=== PATIENT | female | born 1935 | race Hispanic/Latino ===

== ENCOUNTER 2021-06-10 13:40 | Emergency (ER) | payer MEDICARE ==
[~2021-06-10] VITALS: Ht 157.5 cm; Wt 65.8 kg
[2021-06-10 13:42] VITALS: BP 164/76
[2021-06-10] MEDS ORDERED: MORPHINE 2 MG SYG IVP ONE (14:30)
[2021-06-10] MEDS ORDERED: ONDANSETRON 4MG INJ IVP ONE (14:30)
[2021-06-10 14:57] LABS: BASOPHILS % (AUTO) 0.4 % (0.0-5.0); EOSINOPHILS % (AUTO) 1.6 % (0.0-8.0); HEMATOCRIT 38.4 % (36-48); LYMPHOCYTES % (AUTO) 27.9 % (21.0-51.0); MEAN CORPUSCULAR HEMOGLOBIN 30.8 pg (27.0-33.0); MEAN CORPUSCULAR HGB CONC 33.3 g/dL (32.0-36.0); MEAN CORPUSCULAR VOLUME 92.3 fL (79-99); MONOCYTES % (AUTO) 6.5 % (3.0-13.0); NEUTROPHILS % (AUTO) 63.3 % (40.0-77.0); PLATELET COUNT (AUTO) 154 K/uL (130-400); RED BLOOD CELL COUNT(AUTO) 4.16 MIL/uL (4.00-5.50); RED CELL DISTRIBUTION WIDTH 13.8 % (11.0-15.5); WHITE BLOOD COUNT (AUTO) 6.8 K/uL (4.8-10.8)
[2021-06-10 15:08] LABS: CREATININE 0.8 mg/dL (0.5-1.5); POTASSIUM 4.9 mmol/L (3.5-5.1)
[2021-06-10 15:30] LABS: ALBUMIN 3.9 g/dL (3.5-5.0); BILIRUBIN,TOTAL 0.9 mg/dL (0.2-1.0); TOTAL PROTEIN, SERUM 7.9 g/dL (6.0-8.3)
[2021-06-10] MEDS ORDERED: IBUP-2091 PO (16:22)
== END 2021-06-10 16:33 | disposition home or self-care (01) ==
LOC: EDH 13:40
DX: S22.42XA Multiple fractures of ribs, left side, initial encounter for closed fracture (principal); R06.00 Dyspnea, unspecified; I10 Essential (primary) hypertension; E78.00 Pure hypercholesterolemia, unspecified; E11.9 Type 2 diabetes mellitus without complications; Z79.899 Other long term (current) drug therapy; W18.39XA Other fall on same level, initial encounter; Y93.89 Activity, other specified; Y92.89 Other specified places as the place of occurrence of the external cause; Y99.8 Other external cause status
CPT/HCPCS: 36415; 71045; 71100; 80053; 85025; 96374; 96375; 99284; J2405

== ENCOUNTER 2022-11-06 11:30 | Observation (INO) | payer MEDICARE ==
[~2022-11-06] VITALS: Ht 157.5 cm; Wt 63.3 kg
[~2022-11-06 11:30] MED LIST: IBUP-2091 PO
[2022-11-06] MEDS ORDERED: LABETALOL 20MG VIAL IV ONE (12:00)
[2022-11-06] MEDS ORDERED: ASPIRIN 81MG CHEW TAB PO ONE (12:00)
[2022-11-06 12:20] LABS: BASOPHILS % (AUTO) 0.2 % (0.0-5.0); EOSINOPHILS % (AUTO) 0.3 % (0.0-8.0); HEMATOCRIT 36.2 % (36-48); LYMPHOCYTES % (AUTO) 10.4 % (21.0-51.0); MEAN CORPUSCULAR HEMOGLOBIN 29.9 pg (27.0-33.0); MEAN CORPUSCULAR HGB CONC 33.1 g/dL (32.0-36.0); MONOCYTES % (AUTO) 3.9 % (3.0-13.0); NEUTROPHILS % (AUTO) 84.7 % (40.0-77.0); PLATELET COUNT (AUTO) 236 K/uL (130-400); RED BLOOD CELL COUNT(AUTO) 4.02 MIL/uL (4.00-5.50); RED CELL DISTRIBUTION WIDTH 13.4 % (11.0-15.5); WHITE BLOOD COUNT (AUTO) 9.7 K/uL (4.8-10.8)
[2022-11-06 12:30] LABS: CREATININE 0.7 mg/dL (0.5-1.5); INR 0.98 (0.85-1.15); POTASSIUM 4.1 mmol/L (3.5-5.1); PROTHROMBIN TIME 10.7 SEC (9.6-11.6)
[2022-11-06 12:32] LABS: PARTIAL THROMBOPLASTIN TIME 28.8 SEC (26.3-35.5)
[2022-11-06 12:34] LABS: ALBUMIN 3.6 g/dL (3.5-5.0); TOTAL PROTEIN, SERUM 7.2 g/dL (6.0-8.3)
[2022-11-06 12:43] LABS: MAGNESIUM 2.1 mg/dL (1.80-2.40)
[2022-11-06 13:54] LABS: APPEARANCE,URINE CLOUDY (CLEAR); BILIRUBIN,URINE NEGATIVE (NEGATIVE); COLOR,URINE YELLOW (YELLOW); GLUCOSE, URINE (UA) >=1000 mg/dL (NEGATIVE); KETONES,URINE NEGATIVE (NEGATIVE); LEUKOCYTE ESTERASE ,URINE SMALL Leu/uL (NEGATIVE); NITRATE,URINE NEGATIVE (NEGATIVE); OCCULT BLOOD,URINE TRACE-INTACT (NEGATIVE); PROTEIN,URINE NEGATIVE (NEGATIVE); UROBILINOGEN,URINE 0.2 mg/dL (0.2-1.0)
[2022-11-06 13:59] LABS: HEMOGLOBIN A1C 7.1 % (4.0-6.0)
[2022-11-06] MEDS ORDERED: LACTULOSE 20 GM/30 ML UDCUP PO PRN (14:00)
[2022-11-06] MEDS ORDERED: ONDANSETRON 4MG INJ IV PRN (14:00)
[2022-11-06] MEDS ORDERED: ACETAMINOPHEN 325 MG TAB PO PRN ×2 (14:00)
[2022-11-06 14:09] LABS: BACTERIA,URINE Many /HPF (None Seen); RBC,URINE 0-1 /HPF (0-1); SQUAMOUS EPITHELIAL CELL,UR Rare /HPF (0-2)
[2022-11-06] MEDS: 0.9%NACL 1000ML 1,000 ML IV SCH ×2 (14:19→20:23)
[2022-11-06] MEDS ORDERED: GLUCAGON 1MG KIT 1 MG ML IM PRN (14:30)
[2022-11-06] MEDS ORDERED: DEXTROSE 50%-WATER 50 ML DISP.SYRIN IV PRN (14:30)
[2022-11-06] MEDS: HYDRALAZINE 20MG/ML VIAL IV PRN (16:29)
[2022-11-06] MEDS: INSULIN HUMULIN R 100 UNIT/ML 3ML SQ SCH ×2 (16:30→21:00)
[2022-11-06 17:40] VITALS: BP 168/83
[2022-11-06 20:00] VITALS: BP 142/72
[2022-11-06] MEDS: FAMOTIDINE 20MG TAB PO SCH (20:22)
[2022-11-07] VITALS (10 sets, daily range): BP systolic 110–181; BP diastolic 66–86
[2022-11-07] MEDS: HYDRALAZINE 20MG/ML VIAL IV PRN (04:18)
[2022-11-07 04:59] LABS: BASOPHILS % (AUTO) 0.6 % (0.0-5.0); EOSINOPHILS % (AUTO) 2.8 % (0.0-8.0); HEMATOCRIT 35.7 % (36-48); LYMPHOCYTES % (AUTO) 35.5 % (21.0-51.0); MEAN CORPUSCULAR HEMOGLOBIN 29.6 pg (27.0-33.0); MEAN CORPUSCULAR HGB CONC 33.1 g/dL (32.0-36.0); MEAN CORPUSCULAR VOLUME 89.5 fL (79-99); MONOCYTES % (AUTO) 7.8 % (3.0-13.0); NEUTROPHILS % (AUTO) 53.1 % (40.0-77.0); PLATELET COUNT (AUTO) 233 K/uL (130-400); RED BLOOD CELL COUNT(AUTO) 3.99 MIL/uL (4.00-5.50); RED CELL DISTRIBUTION WIDTH 13.5 % (11.0-15.5); WHITE BLOOD COUNT (AUTO) 5.4 K/uL (4.8-10.8)
[2022-11-07 05:26] LABS: ALBUMIN 3.3 g/dL (3.5-5.0); CREATININE 0.7 mg/dL (0.5-1.5); POTASSIUM 3.5 mmol/L (3.5-5.1); TOTAL PROTEIN, SERUM 6.8 g/dL (6.0-8.3)
[2022-11-07] MEDS: INSULIN HUMULIN R 100 UNIT/ML 3ML SQ SCH ×4 (06:31→20:29)
[2022-11-07] MEDS: 0.9%NACL 1000ML 1,000 ML IV SCH (06:48)
[2022-11-07] MEDS: ENOXAPARIN SODIUM 30 MG/0.3 ML SQ SCH (11:23)
[2022-11-07] MEDS ORDERED: LISINOPRIL 10 MG TABLET PO SCH (12:00)
[2022-11-07] MEDS: FAMOTIDINE 20MG TAB PO SCH (20:07)
[2022-11-08 04:00] VITALS: BP_SYST 125; BP_SYST 144; BP_SYST 153; BP_DIAS 65; BP_DIAS 70; BP_DIAS 75
[2022-11-08] MEDS: INSULIN HUMULIN R 100 UNIT/ML 3ML SQ SCH ×2 (06:19→11:30)
[2022-11-08 06:42] LABS: HEMATOCRIT 35.8 % (36-48); MEAN CORPUSCULAR HEMOGLOBIN 29.9 pg (27.0-33.0); MEAN CORPUSCULAR HGB CONC 32.7 g/dL (32.0-36.0); MEAN CORPUSCULAR VOLUME 91.6 fL (79-99); RED BLOOD CELL COUNT(AUTO) 3.91 MIL/uL (4.00-5.50); RED CELL DISTRIBUTION WIDTH 13.5 % (11.0-15.5); WHITE BLOOD COUNT (AUTO) 5.8 K/uL (4.8-10.8)
[2022-11-08 07:01] LABS: CREATININE 0.7 mg/dL (0.5-1.5); POTASSIUM 3.8 mmol/L (3.5-5.1)
[2022-11-08 07:30] VITALS: BP 154/86
[2022-11-08] MEDS ORDERED: LISINOPRIL 10 MG TABLET PO SCH (09:00)
[2022-11-08] MEDS: ENOXAPARIN SODIUM 30 MG/0.3 ML SQ SCH (09:01)
[2022-11-08] MEDS ORDERED: DONE10TA43 PO (10:38)
[2022-11-08] MEDS ORDERED: IBUP200C5 PO (10:38)
[2022-11-08] MEDS ORDERED: METF-446 PO (10:38)
[2022-11-08] MEDS ORDERED: MEMA5TAB42 PO (10:38)
[2022-11-08] MEDS ORDERED: LEVO100C4 PO (10:38)
[2022-11-08] MEDS ORDERED: DAPA10TA PO (10:38)
[2022-11-08] MEDS ORDERED: GLIP5TAB11 PO (10:38)
[2022-11-08] MEDS ORDERED: TELM1TAB31 PO (10:38)
[2022-11-08] MEDS ORDERED: ROSU20TA31 PO (10:38)
[2022-11-08 11:30] VITALS: BP 148/77
[2022-11-08] MEDS ORDERED: CEPH500B PO (14:36)
== END 2022-11-08 15:30 | disposition home or self-care (01) ==
LOC: EDH 11:30 → EDHIP 13:34 → 3CH 18:09
PROVIDERS: ADMIT Hospitalist; ATTEND Hospitalist
DX: G90.9 Disorder of the autonomic nervous system, unspecified (principal); R55 Syncope and collapse; R94.31 Abnormal electrocardiogram [ECG] [EKG]; I16.0 Hypertensive urgency; N39.0 Urinary tract infection, site not specified; B96.1 Klebsiella pneumoniae [K. pneumoniae] as the cause of diseases classified elsewhere; I16.1 Hypertensive emergency; I10 Essential (primary) hypertension; E11.43 Type 2 diabetes mellitus with diabetic autonomic (poly)neuropathy; E03.9 Hypothyroidism, unspecified; Z79.4 Long term (current) use of insulin; Z79.899 Other long term (current) drug therapy
CPT/HCPCS: 96374; 96361 ×2; 96375; 83036; 82550 ×3; 83735; 83874 ×3; 84484 ×4; 80061; 80053 ×2; 83880; 85025 ×2; 85610; 85730; 87077; 87088; 87186; 82948 ×8; 81001; 36415 ×3; 71045; 70450; 93306; 93880; 99291; 93005 ×3; 96376; 96372 ×2; 70551; 95819; 80048; 85027; G0378 ×49; J7030; J0360; J3490; J1815 ×2; J1650 ×2